=== PATIENT | male | born 1990 | race Caucasian/White ===

== ENCOUNTER 2021-08-11 14:33 | Emergency (ER) | payer OTHER ==
[~2021-08-11 14:33] MED LIST: HYDROmorphone 2 MG/ML SDV IM ONE
[2021-08-11] MEDS ORDERED: Ketorolac 60 MG/2 ML SDV ONE (15:18)
[2021-08-11] MEDS ORDERED: HYDROmorphone 2 MG/ML SDV IM ONE (15:30)
[2021-08-11] MEDS ORDERED: HYDROmorphone 2 MG/ML SDV ONE (15:39)
[2021-08-11] MEDS ORDERED: LORazepam 2 MG/ML SDV IM ONE (15:41)
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
[2021-08-11] MEDS ORDERED: Acetaminophen/HYDROcodone 325-5 MG Tab ONE (17:00)
--- NOTE | 2021-08-11 18:26 | CT ---
DATE OF SERVICE: 08/12/2021 CLINICAL DATA: [facility] UNENHANCED CHEST CT: Multislice axial acquisition was performed. Breathing motion artifact degrades study quality. There are mild atelectatic changes in the dependent portion of both lungs and within the lingular segment of the left upper lobe. The lungs are otherwise clear. No areas of consolidation. No pneumothorax. No pleural effusions. The heart size is normal. No aortic aneurysm. No hilar or mediastinal adenopathy. There is a moderately large hiatal hernia. There is gas and fluid within the distal esophagus, most likely secondary to GE reflux. There is degenerative disc disease throughout the upper and mid thoracic spine. No displaced fractures. UNENHANCED ABDOMEN AND PELVIC CT: Multislice acquisition through the abdomen without IV or oral contrast was performed. No priors. There is beam hardening and streak artifact produced by the patient's arms. There is a moderate sized hiatal hernia. The unenhanced liver demonstrates mild diffuse fatty infiltration. No focal hepatic lesions. The gallbladder appears normal. The spleen appears normal. The pancreas appears normal. The right and left adrenals appear normal. There are multiple nonobstructing renal calculi on the right. The right and left kidneys otherwise appear normal. No hydronephrosis or hydroureter. No evidence of ureteral calculi. The bladder is partially fluid filled. It appears normal. The appendix appears normal. No free air. No free fluid. No dilated loops of bowel. No adenopathy. No aortic aneurysm. No fractures. IMPRESSION: No acute abnormalities. [id number] [facility]
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
== END 2021-08-11 17:30 | disposition home or self-care (01) ==
LOC: LB.ED 14:33
DX: R07.1 Chest pain on breathing (principal); M25.561 Pain in right knee; M54.2 Cervicalgia; Z79.899 Other long term (current) drug therapy; V49.40XA Driver injured in collision with unspecified motor vehicles in traffic accident, initial encounter; Y92.410 Unspecified street and highway as the place of occurrence of the external cause
CPT/HCPCS: 36415; 71250; 72125; 73560; 74176; 80053; 85025; 96372; 99285; A0425; A0429; A9270; J1170; J2060